=== PATIENT | female | born 1980 | race Caucasian/White ===

== ENCOUNTER 2017-01-27 19:14 | Inpatient (IN) | payer OTHER ==
[2017-01-27 20:11] LABS: HEMOGLOBIN 11.7 gm/dl (12.3-15.3); RED BLOOD COUNT 3.99 M/UL (4.00-5.10); WHITE BLOOD COUNT 11.3 K/UL (4.5-11.0)
[2017-01-29 03:03] LABS: HEMOGLOBIN 10.9 gm/dl (12.3-15.3)
== END 2017-01-30 12:19 | disposition home or self-care (01) | DRG 774 ==
LOC: GENOP 19:14 → OB 22:46
PROVIDERS: Obstetrics & Gynecology; ADMIT Obstetrics & Gynecology
PROC: 4A1H7CZ Monitoring of Products of Conception, Cardiac Rate, Via Natural or Artificial Opening (ICD-10-PCS; principal; 2017-01-27)
PROC: 10H07YZ Insertion of Other Device into Products of Conception, Via Natural or Artificial Opening (ICD-10-PCS; principal; 2017-01-27)
PROC: 3E033VJ Introduction of Other Hormone into Peripheral Vein, Percutaneous Approach (ICD-10-PCS; principal; 2017-01-27)
PROC: 10907ZC Drainage of Amniotic Fluid, Therapeutic from Products of Conception, Via Natural or Artificial Opening (ICD-10-PCS; 2017-01-28)
PROC: 10E0XZZ Delivery of Products of Conception, External Approach (ICD-10-PCS; 2017-01-28)
PROC: 3E0234Z Introduction of Serum, Toxoid and Vaccine into Muscle, Percutaneous Approach (ICD-10-PCS; 2017-01-29)
DX: O99.324 Drug use complicating childbirth (principal); O98.42 Viral hepatitis complicating childbirth; F11.20 Opioid dependence, uncomplicated; O98.82 Other maternal infectious and parasitic diseases complicating childbirth; O75.89 Other specified complications of labor and delivery; G40.909 Epilepsy, unspecified, not intractable, without status epilepticus; B95.1 Streptococcus, group B, as the cause of diseases classified elsewhere; Z37.0 Single live birth; Z3A.40 40 weeks gestation of pregnancy; Z62.810 Personal history of physical and sexual abuse in childhood; O99.344 Other mental disorders complicating childbirth; F41.9 Anxiety disorder, unspecified; J45.909 Unspecified asthma, uncomplicated; F32.9 Major depressive disorder, single episode, unspecified; O99.334 Smoking (tobacco) complicating childbirth; F17.210 Nicotine dependence, cigarettes, uncomplicated; Z88.8 Allergy status to other drugs, medicaments and biological substances; Z23 Encounter for immunization; Z87.828 Personal history of other (healed) physical injury and trauma; Z83.3 Family history of diabetes mellitus; Z80.3 Family history of malignant neoplasm of breast; Z82.49 Family history of ischemic heart disease and other diseases of the circulatory system; Z83.49 Family history of other endocrine, nutritional and metabolic diseases; Z84.89 Family history of other specified conditions; Z84.1 Family history of disorders of kidney and ureter; Z81.8 Family history of other mental and behavioral disorders; Z86.19 Personal history of other infectious and parasitic diseases
CPT/HCPCS: 36415; 51702; 80307; 81001; 82800; 83518; 85014; 85018; 85025; 90715; J2590; J2795; J3010; J7050; J7120; Q2039

== ENCOUNTER 2021-01-04 13:53 | Emergency (ER) | payer OTHER ==
[~2021-01-04 13:53] MED LIST: BACLOFEN20 MG PO; BENTYL 20MG TAB20 MG PO; COLACE100 MG PO; FERROUS SULFAT325 M2 PO; PRENATAL VITAM1 EAC6 PO; SEROQUEL25 MG PO; SUBUTEX 8 MG TAB8 MG SL; ZOFRAN ODT 4 MG4 MG SL
== END 2021-01-04 14:46 | disposition home or self-care (01) ==
LOC: ER1 13:53
DX: R20.2 Paresthesia of skin (principal); R25.8 Other abnormal involuntary movements; F17.200 Nicotine dependence, unspecified, uncomplicated
CPT/HCPCS: 99283

== ENCOUNTER → 2021-08-21 | Outpatient (CLI) | payer OTHER | LOC: EXRD 08-20 13:30 | DX: R39.11 Hesitancy of micturition (principal) | CPT/HCPCS: 76775 ==

== ENCOUNTER → 2022-05-13 | Outpatient (CLI) | payer OTHER | LOC: HEART 5 13:57 | DX: R55 Syncope and collapse (principal) ==